=== PATIENT | female | born 1940 | race Caucasian/White ===

== ENCOUNTER 2016-10-07 06:57 | Day surgery (SDC) | payer MEDICARE, BC ==
[~2016-10-07 06:57] MED LIST: Lactated Ringers 1,000 ML IV SCH
[2016-10-07] MEDS ORDERED: Propofol 200 MG/20 ML SDV ONE (07:45)
[2016-10-07 12:56] VITALS: BP 145/60
--- NOTE | 2016-10-07 17:55 | OR ---
DATE OF SURGERY: 10/07/2016. REFERRING PROVIDER: Abbie Mackey MD. PRE-OPERATIVE DIAGNOSIS: Positive fit stool card. The patient's last colonoscopy in 2013 was normal. POST-OPERATIVE DIAGNOSES: 1. A 6 mm polyp noted at the entry to the cecum. This was removed with hot snare. 2. Moderate left-sided diverticulosis. 3. Tortuous colon. PROCEDURE: Colonoscopy with polypectomy x1 using hot snare. SURGEON: Marcello Montelongo M.D. ANESTHESIA: Monitored anesthesia care. BOWEL PREP: DESCRIPTION OF PROCEDURE: Shiloh is a 76-year-old female, who was brought to the endoscopy suite after discussing risks and benefits of the procedure. Informed consent was obtained for conscious sedation and colonoscopy with or without biopsy and/or polypectomy. We also discussed possibility of missed lesions. Pre-procedure exam was unremarkable. IV, oxygen, and monitors were placed. The patient was placed in the left lateral decubitus position. Sedation was administered and a digital rectal exam was performed which was unremarkable. Colonoscope was passed into the rectum and slowly advanced all the way to the cecum. Cecum was viewed and photographed. There was a 6 mm polyp at the entry to the cecum which was photographed and removed with hot snare. The colonoscope was slowly withdrawn and the mucosa was closed observed in a direct circumferential manner. The ascending colon was unremarkable. The transverse colon was unremarkable. The descending colon and sigmoid colon were remarkable for some moderate diverticulosis. Retroflexion was performed and rectal mucosa was unremarkable. Scope was removed. The patient tolerated the procedure well. The patient was monitored until that baseline status. Discharge instructions were reviewed and the patient was discharged in good condition. COMPLICATIONS: None. TOTAL TIME: 22 minutes. ESTIMATED BLOOD LOSS: Less than 1 mL. RECOMMENDATIONS/FOLLOW-UP: Await results of path report to determine ideal followup interval. I would like to kindly thank Dr. Mackey for this referral. DMB: 10/07/2016 10:04:03 MODL: 10/07/2016 17:27:41 /[id number]
== END 2016-10-07 10:30 | disposition home or self-care (01) ==
LOC: VM.SDS 06:57
PROVIDERS: ATTEND Family Medicine
DX: K51.418 Inflammatory polyps of colon with other complication (principal); K57.30 Diverticulosis of large intestine without perforation or abscess without bleeding; Z88.0 Allergy status to penicillin; Z88.8 Allergy status to other drugs, medicaments and biological substances; Z79.899 Other long term (current) drug therapy; E78.5 Hyperlipidemia, unspecified; E89.0 Postprocedural hypothyroidism; Z98.51 Tubal ligation status; Z90.710 Acquired absence of both cervix and uterus; Z98.890 Other specified postprocedural states
CPT/HCPCS: 00810; 45385; 88305; J2704; J7120

== ENCOUNTER 2020-07-21 12:24 | Emergency (ER) | payer MEDICARE, BC ==
[2020-07-21] MEDS ORDERED: Sodium Chloride 0.9% 1,000 ML IV ONE (12:36)
[2020-07-21] MEDS ORDERED: Sodium Chloride 0.9% 10 ML Syringe FLUSH PRN (12:42)
--- NOTE | 2020-07-21 13:04 | EDM.PDOC ---
ED HPI GENERAL MEDICAL PROBLEM - General Chief Complaint: General Stated Complaint: DIZZY Time Seen by Provider: 07/21/20 12:34 Source of Information: Reports: Patient, Provider - History of Present Illness INITIAL COMMENTS - FREE TEXT/NARRATIVE: Shiloh is an 80 y/o female who comes to the ER with dizziness and a "funny feeling in the right side" of her head. She got up about 0630 and felt a bit dizzy, then she let her dog out about 0700 and she fell in her kitchen due to the feeling. She denies hitting her head or any LOC. She just felt quite "off- balance" and then she started to get very nauseated and dizzy. She did go to the [facility] and was seen by Dr Ban Aleman. Dr Aleman did orthostatic BPs on her at the clinic, but they were negative. EKG also done at clinic that was normal. Dr Aleman sent the patient here for further labs, IV fluids, and a head CT. - Related Data Allergies Allergy/AdvReac Type Severity Reaction Status Date / Time aspirin Allergy Nausea and Verified 07/21/20 12:41 Vomiting Penicillins Allergy Cannot Verified 07/21/20 12:41 Remember pneumococcal vaccine Allergy Edema Verified 07/21/20 12:41 [Pneumococcal Vaccine] Home Meds: Home Meds Multivitamin with Minerals [Multivitamins with Minerals] 1 each PO DAILY 09/10/13 [History] Levothyroxine Sodium 100 mcg PO DAILY 10/21/13 [History] Calcium Carbonate 600 mg PO DAILY 10/04/16 [History] Alendronate Sodium [Fosamax] 70 mg PO Q7D 07/21/20 [History] [place]-3/DHA/Epa/Fish Oil [[place]-3 Fish Oil 1,000 MG Sfgl] 2,000 mg PO DAILY 07/21/20 [History] Ondansetron [Ondansetron ODT] 4 mg PO Q6H PRN #15 tab.rapdis 07/21/20 [Rx] Red Yeast Rice 600 mg PO DAILY 07/21/20 [History] Vitamin B Complex 1 each PO DAILY 07/21/20 [History] Past Medical History HEENT History: Reports: Hard of Hearing Cardiovascular History: Reports: High Cholesterol Respiratory History: Reports: SOB Other Respiratory History: SOB with activity Gastrointestinal History: Reports: PUD, Other (See Below) Other Gastrointestinal History: GASTROENTERITIS. HEME + STOOL Genitourinary History: Reports: Other (See Below) Other Genitourinary History: bladder lift 2011 STABLE ATTENDANT History: Reports: None Musculoskeletal History: Reports: None Neurological History: Reports: Other (See Below) Other Neuro History: TIC DISORDER Psychiatric History: Reports: Depression Endocrine/Metabolic History: Reports: Hypothyroidism Hematologic History: Reports: Other (See Below) Other Hematologic History: HYPOMAGNESEMIA Immunologic History: Reports: None Oncologic (Cancer) History: Reports: Thyroid Dermatologic History: Reports: None - Past Surgical History Female Surgical History: Reports: D&C, Hysterectomy, Tubal Ligation, Other (See Below) ED ROS GENERAL - Review of Systems Review Of Systems: See Below Constitutional: Reports: No Symptoms HEENT: Reports: Vertigo Respiratory: Reports: No Symptoms Cardiovascular: Reports: No Symptoms Endocrine: Reports: No Symptoms GI/Abdominal: Reports: Nausea : Reports: No Symptoms Musculoskeletal: Reports: No Symptoms Skin: Reports: No Symptoms Neurological: Reports: Headache (right sided) Psychiatric: Reports: No Symptoms Hematologic/Lymphatic: Reports: No Symptoms Immunologic: Reports: No Symptoms ED EXAM, GENERAL - Physical Exam Exam: See Below Exam Limited By: No Limitations General Appearance: Alert, WD/WN, No Apparent Distress (Elderly female.) Eye Exam: Right Eye: Other (twitch noted), Bilateral Eye: PERRL Ears: Normal External Exam, Normal Canal, Hearing Grossly Normal, Other (wears bilateral hearing aids) Nose: Normal Inspection, Normal Mucosa Throat/Mouth: Normal Inspection, Normal Lips, Normal Voice Head: Atraumatic, Normocephalic Neck: Normal Inspection, Supple, Non-Tender Respiratory/Chest: No Respiratory Distress, Lungs Clear, Normal Breath Sounds, Chest Non-Tender Cardiovascular: Normal Peripheral Pulses, Regular Rate, Rhythm, No Edema GI/Abdominal: Normal Bowel Sounds, Soft, Non-Tender (Female) Exam: Deferred Rectal (Female) Exam: Deferred Back Exam: Normal Inspection Extremities: Normal Inspection Neurological: Alert, Oriented, CN II-XII Intact Psychiatric: Normal Affect, Normal Mood Skin Exam: Warm, Dry, Intact, Normal Color Lymphatic: No Adenopathy #1 Interpretation EKG Date: 07/21/20 Time: 12:39 Rhythm: NSR Rate (Beats/Min): 76 [place]: Normal P-Wave: Present QRS: Normal ST-T: Normal QT: Prolonged Comparison: NA - No Prior EKG EKG Interpretation Comments: SR [facility] PACs noted, prolonged QT interval Course - Vital Signs Text/Narrative:: 1234 The patient was seen by the CUTTING DEPARTMENT SUPERVISOR. Labs, EKG, Head CT ordered. She was given a liter of NS and Zofran [address] results reviewed. Labs reviewed. Patient feeling better after IV fluids and Zofran. States she feels well enough to drive back home and wants to leave the hospital. Will send her home with some Ondanestron to use prn. She was given discharge instructions and left the ER in stable condition. Last Recorded V/S: Last Vital Signs Temp 36.6 C 07/21/20 12:28 Pulse 58 L 07/21/20 12:28 Resp 20 07/21/20 12:28 BP 167/71 H 07/21/20 12:28 Pulse Ox 100 07/21/20 12:28 - Orders/Labs/Meds Orders: Active Orders 24 hr Category Date Time Status EKG Documentation Completion [RC] STAT Care 07/21/20 12:36 Active UA RFX BO AND CULT IF INDIC [URIN] Stat Lab 07/21/20 14:09 Ordered Sodium Chloride 0.9% [Saline Flush] Med 07/21/20 12:42 Active 10 ml FLUSH ASDIRECTED PRN Saline Lock Insert [OM.PC] Stat Oth 07/21/20 12:35 Ordered Medication Orders Sodium Chloride (Saline Flush) 10 ml FLUSH ASDIRECTED PRN PRN Reason: Keep Vein Open Labs: Laboratory Tests 07/21/20 07/21/20 07/21/20 Range/Units 12:57 12:57 12:57 WBC 5.3 (4.0-10.0) x10^3/uL RBC 4.29 (4.00-5.50) x10^6/uL Hgb 12.5 (12.0-16.0) g/dL Hct 38.2 (33.0-47.0) % MCV 89.0 (78.0-93.0) fL MCH 29.1 (26.0-32.0) pg MCHC 32.7 (32.0-36.0) g/dL RDW Coeff of Ronald 12.4 (10.0-15.0) % Plt Count 223 (130-400) x10^3/uL Neut % (Auto) 88.2 H (50.0-80.0) % Lymph % (Auto) 5.9 L (25.0-50.0) % [place] % (Auto) 5.5 (2.0-11.0) % Eos % (Auto) 0.2 (0.0-4.0) % Baso % (Auto) 0.2 (0.2-1.2) % PT 10.1 (9.9-12.5) SEC INR 0.9 L (2.0-3.5) APTT 23.1 L (25.6-32.8) SEC Sodium 137 (136-145) mmol/L Potassium 3.7 (3.5-5.1) mmol/L Chloride 100 (98-107) mmol/L Carbon Dioxide 27 (21-32) mmol/L Anion Gap 13.7 (5-15) mmol/L BUN 16 (7-18) mg/dL Creatinine 0.8 (0.55-1.02) mg/dL Est Cr Clr Drug Dosing TNP Estimated GFR (MDRD) > 60 Glucose 141 H (74-106) mg/dL Calcium 8.8 (8.5-10.1) mg/dL Corrected Calcium 9.20 (8.5-10.1) mg/dL Magnesium 1.9 (1.8-2.4) mg/dL Total Bilirubin 0.5 (0.2-1.0) mg/dL AST 20 (15-37) U/L ALT 22 (14-59) U/L Alkaline Phosphatase 64 (46-116) U/L Troponin I < 0.017 (<=0.056) ng/mL C-Reactive Protein < 0.2 (<=0.9) mg/dL Total Protein 7.3 (6.4-8.2) g/dL Albumin 3.5 (3.4-5.0) g/dL Globulin 3.8 Albumin/Globulin Ratio 0.92 TSH, Ultra Sensitive 0.169 L (0.358-3.74) uIU/mL Meds: Medications Generic Name Dose Route Start Last Admin Trade Name Freq PRN Reason Stop Dose Admin Sodium Chloride 10 ml 07/21/20 12:42 Saline Flush FLUSH ASDIRECTED PRN Keep Vein Open Discontinued Medications Generic Name Dose Route Start Last Admin Trade Name Emilee PRN Reason Stop Dose Admin Sodium Chloride 1,000 mls @ 999 mls/hr 07/21/20 12:36 07/21/20 13:11 Normal Saline IV 07/21/20 13:36 999 mls/hr ONETIME ONE Administration Ondansetron HCl 4 mg 07/21/20 14:00 07/21/20 14:07 Zofran IVPUSH 07/21/20 14:01 4 mg ONETIME ONE Administration - Radiology Interpretation Free Text/Narrative:: CT Head WO=acute left frontal and maxillary sinusitis, no acute bleeding noted (See final report) Departure - Departure Time of Disposition: 14:31 Disposition: Home, Self-Care 01 Condition: Good Clinical Impression: Dizziness, Nausea - Discharge Information Prescriptions: Ondansetron [Ondansetron ODT] 4 mg PO Q6H PRN #15 tab.rapdis PRN Reason: Nausea Instructions: Nausea, Adult, Dizziness Forms: ED Department Discharge Additional Instructions: -Ondanestron ODT 4mg oral very 4 hours as needed for nausea #15(Rx) -Stay well hydrated -Rest as needed -Return to the ER or follow up with Dr jane Aleman at the [facility] Sepsis Event Note (ED) - Evaluation Sepsis Screening Result: No Definite Risk - Focused Exam Vital Signs: Vital Signs Temp Pulse Resp BP Pulse Ox 07/21/20 12:28 36.6 C 58 L 20 167/71 H 100 - My Orders Last 24 Hours: My Active Orders 07/21/20 12:35 Saline Lock Insert [OM.PC] Stat 07/21/20 12:36 EKG Documentation Completion [RC] STAT 07/21/20 12:42 Sodium Chloride 0.9% [Saline Flush] 10 ml FLUSH ASDIRECTED PRN 07/21/20 14:09 UA RFX BO AND CULT IF INDIC [URIN] Stat - Assessment/Plan Last 24 Hours: My Active Orders 07/21/20 12:35 Saline Lock Insert [OM.PC] Stat 07/21/20 12:36 EKG Documentation Completion [RC] STAT 07/21/20 12:42 Sodium Chloride 0.9% [Saline Flush] 10 ml FLUSH ASDIRECTED PRN 07/21/20 14:09 UA RFX BO AND CULT IF INDIC [URIN] Stat Assessment:: 1)Dizziness 2)Nausea Plan: -Ondanestron ODT 4mg oral very 4 hours as needed for nausea #15(Rx) -Stay well hydrated -Rest as needed -Return to the ER or follow up with Dr jane Aleman at the [facility]
[2020-07-21 13:23] LABS: PTT,PARTIAL THROMBOPLSTIN TIME 23.1 SEC (25.6-32.8)
[2020-07-21 13:35] LABS: CHLORIDE,CL 100 mmol/L (98-107); SODIUM,NA 137 mmol/L (136-145)
[2020-07-21 13:40] LABS: ANION GAP 13.7 mmol/L (5-15)
[2020-07-21] MEDS ORDERED: Ondansetron 4 MG/2 ML SDV IVPUSH ONE (14:00)
--- NOTE | 2020-07-21 14:26 | CT ---
[id number] CT/CT Head WO IV EXAM: NONCONTRAST HEAD CT INDICATION: DIZZINESS, RIGHT HEAD "FULLNESS" SENSATION. COMPARISON: None. DISCUSSION: There is mild generalized atrophy. The [place] and white matter are normal in attenuation. No mass effect or midline shift. No acute hemorrhage or extra-axial fluid collection. No acute territorial infarct is identified. Fluid in the left frontal and left maxillary sinuses compatible with acute sinusitis. Scattered mild to moderate mucosal thickening within the left frontal, left maxillary and to a lesser extent scattered left ethmoid sinuses. IMPRESSION: 1. Acute left frontal and maxillary sinusitis. 2. No acute intracranial findings. Brent Tang MD 07/21/20 6630 Thank you for allowing us to participate in the care of your patient.
[2020-07-21 14:56] VITALS: BP 165/66; PULSE 78
== END 2020-07-21 14:54 | disposition home or self-care (01) ==
LOC: VM.ED 12:24
DX: R42 Dizziness and giddiness (principal); R11.0 Nausea; E03.9 Hypothyroidism, unspecified; Z88.0 Allergy status to penicillin; Z88.8 Allergy status to other drugs, medicaments and biological substances; Z88.7 Allergy status to serum and vaccine; Z79.899 Other long term (current) drug therapy
CPT/HCPCS: 70450; 80053; 81001; 83735; 84443; 84484; 85025; 85610; 85730; 86140; 87086; 93005; 93010; 96374; 99284; 99284-25; J2405; J7030

== ENCOUNTER 2023-04-15 07:32 | Day surgery (SDC) | payer MEDICARE, BC ==
[2023-04-15] MEDS ORDERED: fentaNYL 100 MCG/2 ML SDV ONE (08:43)
[2023-04-15] MEDS ORDERED: Propofol 200 MG/20 ML SDV ONE (09:42)
[2023-04-15 10:34] VITALS: BP 124/62; PULSE 61
== END 2023-04-15 11:15 | disposition home or self-care (01) ==
LOC: VM.SDS 07:32
PROVIDERS: ATTEND Student in an Organized Health Care Education/Training Program
DX: Z12.11 Encounter for screening for malignant neoplasm of colon (principal); D12.3 Benign neoplasm of transverse colon; I10 Essential (primary) hypertension; E78.00 Pure hypercholesterolemia, unspecified; E89.0 Postprocedural hypothyroidism; E55.9 Vitamin D deficiency, unspecified; Z87.891 Personal history of nicotine dependence; Z79.899 Other long term (current) drug therapy; Z88.0 Allergy status to penicillin
CPT/HCPCS: 00811; 88305; J2704; J3010; J7120